=== PATIENT | female | born 1985 | race Caucasian/White ===

== ENCOUNTER 2020-12-08 21:29 | Emergency (ER) | payer OTHER ==
[2020-12-08] MEDS ORDERED: MORPHINE SULFATE 4 MG INJ ONE (22:13)
[2020-12-08] MEDS ORDERED: Norflex 60 MG/2 ML ONE (22:13)
[2020-12-08] MEDS: MORPHINE SULFATE 4 MG INJ IM ONE (22:16)
[2020-12-08] MEDS: Norflex 60 MG/2 ML IM ONE (22:17)
--- NOTE | 2020-12-08 22:21 | ERPHSYRPT ---
- History of Present Illness Time Seen by Provider: 12/08/20 21:40 Source: patient Exam Limitations: no limitations Patient Subjective Stated Complaint: to Er c/o back pain onset approx wed to right side radiating down right leg to buttocks and knee to Er c/o back pain ons et approx wed to right side radiating down right leg to buttocks and knee Triage Nursing Assessment: To er c/o right side back pain with radiation down right leg. pt arrives with limp present resp easy [id number] Physician History: 35 years old female presented in the ER with chief complaint of sudden onset right low back pain after lifting a basket of laundry 2 days ago, moderate to severe intensity, sharp in nature, radiating to right posterior thigh, aggravated with activity/movements and no significant relieving factor. Denies any numbness tingling or weakness of lower extremities. Denies any loss of bowel or bladder control. No perineal numbness. Denies any direct fall or trauma to the back. Patient does take Neurontin 800 mg 3 times a day and 2 days ago forgot it at [place] where she visited her grandmother and is out of Neurontin for 2 days. Patient reports whenever she is at the hospital she has a white coat hypertension. Denies any chest pain palpitations or shortness of breath. No abdominal pain nausea or vomiting.. Timing/Duration: day(s) (2), constant, sudden, worse Method of Injury: lifting Quality: sharp Back Pain Location: lumbar spine, paraspinous muscles Back Pain Radiation: upper legs Severity of Pain-Max: severe Severity of Pain-Current: severe Modifying Factors: Improves With: immobilization, rest. Worsens With: movement Associated Symptoms: lower back pain, muscle spasms, No fever, No urinary incontinence, No loss of bowel control, No constipation, No nausea, No vomiting, No problems urinating, No light-headedness, No dizziness, No numbness in legs/feet, No weakness, No sensory/motor loss, No tingling in legs/feet Previous symptoms: no prior history Allergies/Adverse Reactions: amoxicillin Allergy (Verified 12/08/20 21:44) clavulanic acid [From Augmentin] Allergy (Verified 12/08/20 21:44) Home Medications: Amphet Asp/Amphet/D-Amphet [Adderall 30 mg Tablet] 30 mg PO DAILY 12/08/20 [History] Aripiprazole 10 mg [Abilify 10 MG] 10 mg PO DAILY 12/08/20 [History] Gabapentin 400 mg [Neurontin 400 MG] 800 mg PO TID 12/08/20 [History] Sertraline HCl [Zoloft] 100 mg PO DAILY 12/08/20 [History] Hx Tetanus, Diphtheria Vaccination/Date Given: No Hx Influenza Vaccination/Date Given: No Hx Pneumococcal Vaccination/Date Given: Yes Travel Risk - International Travel Have you traveled outside of the country in past 3 weeks: No - Coronavirus Screening Are you exhibiting any of the following symptoms?: No Close contact with a COVID-19 positive Pt in past 14-21 Days: No - Vaccine Status Have you recieved a Covid-19 vaccination: Yes [employer]: Moderna - Vaccination Dates Date of 2cond Vaccination (if applicable): november - Review of Systems Constitutional: No Symptoms Eyes: No Symptoms Ears, Nose, & Throat: No Symptoms Respiratory: No Symptoms Cardiac: No Symptoms Abdominal/Gastrointestinal: No Symptoms Genitourinary Symptoms: No Symptoms Musculoskeletal: Back Pain Neurological: No Symptoms Endocrine: No Symptoms Hematologic/Lymphatic: No Symptoms Immunological/Allergic: No Symptoms - Past Medical History Pertinent Past Medical History: No - Past Surgical History Past Surgical History: No - Social History Smoking Status: Current every day smoker Drug Use: none - Female History Hx Last Menstrual Period: 11/17/20 Hx Now: Yes - Nursing Vital Signs Nursing Vital Signs: Initial Vital Signs Temperature 98.1 F 12/08/20 21:36 Pulse Rate 132 H 12/08/20 21:36 Respiratory Rate 22 12/08/20 21:36 Blood Pressure 154/100 12/08/20 21:36 O2 Sat by Pulse Oximetry 91 L 12/08/20 21:36 Pain Scale Pain Intensity 10 - Physical Exam General Appearance: no apparent distress Eye Exam: PERRL/EOMI Ears, Nose, Throat Exam: normal ENT inspection Neck Exam: normal inspection, non-tender, supple, full range of motion Respiratory Exam: normal breath sounds, lungs clear Cardiovascular Exam: normal heart sounds, tachycardia Back Exam: normal inspection, decreased range of motion, muscle spasm, point tenderness (Right sacroiliac area), No normal range of motion, No vertebral tenderness Extremity Exam: normal inspection, other (Positive straight leg raising test on the right at 45 degrees. 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, normal mood/affect, sensation nml, other (2+ symmetric knee and ankle reflexes.) Skin Exam: normal color SpO2 Interpretation: normal SpO2: 91 O2 Delivery: Room Air Ordered Tests: Medication Summary Discontinued Medications Generic Name Dose Route Start Last Admin Trade Name Jonathan PRN Reason Stop Dose Admin Morphine Sulfate 4 mg 12/08/20 22:11 12/08/20 22:16 Morphine Sulfate 4 Mg Inj IM 12/08/20 22:12 4 mg STAT ONE Administration Morphine Sulfate Confirm 12/08/20 22:13 Morphine Sulfate 4 Mg Inj Administered 12/08/20 22:14 Dose 4 mg .ROUTE .STK-MED ONE Orphenadrine Citrate 60 mg 12/08/20 22:11 12/08/20 22:17 Norflex 60 Mg/2 Ml IM 12/08/20 22:12 60 mg STAT ONE Administration Orphenadrine Citrate Confirm 12/08/20 22:13 Norflex 60 Mg/2 Ml Administered 12/08/20 22:14 Dose 60 mg .ROUTE .STK-MED ONE - Progress Progress: improved, pain not gone completely, re-examined Progress Note: 12/08/20 23:11 She is given symptomatic treatment, on reevaluation her pain is much improved and is able to move her right lower extremity much better. Is not completely resolved. She has a negative neuro exam in lower extremities. I believe she has a strain, will put muscle relaxants and NSAIDs, she is advised to continue taking her Neurontin and outpatient primary care follow-up. Discussed signs symptoms of worsening needing return to ER which she seems understanding. Stable for discharge Counseled pt/family regarding: diagnosis, need for follow-up - Departure Departure Disposition: Home Clinical Impression: Back pain is Acute low back pain with right-sided sciatica Qualifiers: Back pain laterality: right Qualified Code(s): M54.41 - Lumbago with sciatica, right side Condition: Stable Critical Care Time: No Referrals: MELLO CERVANTES [Primary Care Provider] - Follow Up with PCP/3 days Instructions: Sciatica (DC) Additional Instructions: Continue with Neurontin take muscle relaxant and diclofenac as needed. Follow- up with primary care physician for reevaluation. Return to ER for intractable pain, numbness tingling weakness of lower extremities, loss of bowel or bladder control. Prescriptions: Diclofenac Sodium 75 mg PO BID PRN 10 Days #20 tablet. PRN Reason: Pain Tizanidine HCl 4 mg [Zanaflex 4 MG] 4 mg PO TID PRN 7 Days #21 tablet PRN Reason: Pain
[2020-12-08] MEDS ORDERED: NORCO 5/325 MG ONE (23:16)
[2020-12-08] MEDS: NORCO 5/325 MG PO ONE (23:17)
[2020-12-09 00:23] VITALS: BP 136/90; PULSE 98; O2SAT 98
== END 2020-12-08 23:21 | disposition home or self-care (01) ==
LOC: ED 21:29 → MERGE 21:29 → ED 23:21
DX: M54.41 Lumbago with sciatica, right side (principal)
CPT/HCPCS: 96372; 99284; J2270; J2360; A9270-GY